=== PATIENT | female | born 1980 | race American Indian/Alaskan Native ===

== ENCOUNTER 2016-09-04 08:04 | Emergency (ER) | payer OTHER ==
--- NOTE | 2016-09-04 09:18 | Emergency Department Report ---
ED Female HPI - General Chief complaint: Urogenital-Female Stated complaint: POSS STD Time Seen by Provider: 09/04/16 09:06 Source: patient Mode of arrival: Ambulatory Limitations: No Limitations - History of Present Illness Initial comments: Patient states she was told by her boyfriend last night that he had penile discharge. At this time she denies any vaginal discharge, painful urination, vaginal bleeding, abdominal pain. She states she would just like to be checked for STD. Patient also noted to have elevated blood pressure 166/106. She states that she was on lisinopril 10 mg but stopped 6 months ago. She just moved from [place] and she does not currently have a primary care physician. Associated Symptoms: denies other symptoms - Related Data Sexually active: Yes Previous Rx's Medication Instructions Recorded Last Taken Type Lisinopril [Zestril TAB] 10 mg PO QDAY #14 tablet 09/04/16 Unknown Rx Allergies Allergy/AdvReac Type Severity Reaction Status Date / Time No Known Allergies Allergy Unverified 09/04/16 08:09 ED Review of Systems ROS: Stated complaint: POSS STD Other details as noted in HPI Constitutional: denies: chills, fever Respiratory: denies: cough, shortness of breath, wheezing Cardiovascular: denies: chest pain, palpitations Gastrointestinal: denies: abdominal pain, nausea, diarrhea Genitourinary: denies: urgency, dysuria, discharge Musculoskeletal: denies: back pain, joint swelling, arthralgia Skin: denies: rash, lesions Neurological: denies: headache, weakness, paresthesias ED Past Medical Hx - Past Medical History Previous Medical History?: Yes Hx Hypertension: Yes (no BP medication x 6 months) - Surgical History Past Surgical History?: Yes Additional Surgical History: bone repair. hand surgery. wrist surgery - Social History Smoking Status: Current Every Day Smoker Substance Use Type: None - Medications Home Medications: Home Medications Medication Instructions Recorded Confirmed Last Taken Type Lisinopril [Zestril TAB] 10 mg PO QDAY #14 tablet 09/04/16 Unknown Rx ED Physical Exam - General Limitations: No Limitations General appearance: alert, in no apparent distress - Head Head exam: Present: atraumatic, normocephalic - Eye Eye exam: Present: normal appearance - Respiratory Respiratory exam: Present: normal lung sounds bilaterally. Absent: respiratory distress - Cardiovascular Cardiovascular Exam: Present: regular rate, normal rhythm. Absent: systolic murmur, diastolic murmur, rubs, gallop - GI/Abdominal GI/Abdominal exam: Present: soft, normal bowel sounds. Absent: tenderness - Extremities Exam Extremities exam: Present: full ROM - Back Exam Back exam: Present: full ROM - Neurological Exam Neurological exam: Present: alert, oriented X3 - Psychiatric Psychiatric exam: Present: normal affect, normal mood - Skin Skin exam: Present: warm, dry, intact, normal color. Absent: rash ED Course Vital Signs 09/04/16 09/04/16 08:09 09:21 Temperature 98.7 F Pulse Rate 94 H Respiratory 18 Rate Blood Pressure 166/106 Blood Pressure 168/98 [Right] O2 Sat by Pulse 100 Oximetry - Reevaluation(s) Reevaluation #1: 09/04/16 09:15 Urinalysis and GC/gonorrhea ordered ED Medical Decision Making - Medical Decision Making Patient presents with possible STD exposure. Her urinalysis is negative. I will not start her on antibiotic at this time. I advised her that we will contact her if her GC is abnormal. I advised her to follow-up with primary care physician to have additional STD testing. I will give her lisinopril 10 mg 2 weeks to give her time to establish PCP care. - Differential Diagnosis std, gonorrhea, chlamydia, hypertension Critical Care Time: No Critical care attestation.: If time is entered above; I have spent that time in minutes in the direct care of this critically ill patient, excluding procedure time. ED Disposition Clinical Impression: Unprotected sexual intercourse, Possible exposure to STD, Hypertension Disposition: DISCHARGED TO HOME OR SELFCARE Is pt being admited?: No Does the pt Need Aspirin: No Condition: Stable Instructions: Sexually Transmitted Diseases (ED), Safe Sex (ED), Hypertension ( ED) Additional Instructions: Follow-up with PCP or outpatient clinic if symptoms began. I advised that she follow up with primary care physician or an outpatient clinic for your blood pressure. Elevated blood pressure for a long period of time can calls organ damage, heart attack, stroke,etc. Prescriptions: Lisinopril [Zestril TAB] 10 mg PO QDAY #14 tablet Referrals: PRIMARY CARE, [Primary Care Provider] - 3-5 Days [facility] [Outside] - 3-5 Days Forms: Work/School Release Form(ED) Time of Disposition: :47
[2016-09-04 09:22] VITALS: BP 168/98
[2016-09-04 09:31] LABS: Bilirubin,Urine NEG (Negative); Blood,Urine NEG (Negative); Ketones,Urine NEG (Negative); Leukocyte Esterase,Urine NEG (Negative); Mucus,Urine FEW /HPF; Nitrite,Urine NEG (Negative); Protein,Urine <15 mg/dL mg/dL (Negative); Urobilinogen,Urine < 2.0 mg/dL (<2.0); WBC,Urine < 1.0 /HPF (0.0-6.0)
== END 2016-09-04 09:53 | disposition home or self-care (01) ==
LOC: ED 08:04
DX: I10 Essential (primary) hypertension (principal); F17.200 Nicotine dependence, unspecified, uncomplicated
CPT/HCPCS: 81001; 99283

== ENCOUNTER 2017-03-24 16:00 | Emergency (ER) | payer OTHER ==
[2017-03-24 17:07] LABS: Bilirubin,Urine NEG (Negative); Blood,Urine LG (Negative); Ketones,Urine NEG (Negative); Leukocyte Esterase,Urine SM (Negative); Mucus,Urine FEW /HPF; Nitrite,Urine NEG (Negative)
[2017-03-24 17:54] VITALS: BP 154/105
[2017-03-24 18:20] LABS: Basophils % (Auto) 0.8 % (0.0-1.8); Eosinophils % (Auto) 0.9 % (0.0-4.3); Hematocrit 41.7 % (30.3-42.9); Hemoglobin 13.3 gm/dl (10.1-14.3); Mean Corpuscular HGB Conc 32 % (30-34); Mean Corpuscular Hemoglobin 26 pg (28-32); Mean Corpuscular Volume 82 fl (79-97); Platelet Count 270 K/mm3 (140-440); Red Blood Count 5.11 M/mm3 (3.65-5.03); Red Cell Distribution Width 14.5 % (13.2-15.2); White Blood Count 7.9 K/mm3 (4.5-11.0)
== END 2017-03-25 02:40 | disposition left against medical advice (07) ==
LOC: ED 16:00
DX: O26.851 Spotting complicating pregnancy, first trimester (principal); O16.1 Unspecified maternal hypertension, first trimester; F17.200 Nicotine dependence, unspecified, uncomplicated; Z3A.01 Less than 8 weeks gestation of pregnancy; Z53.21 Procedure and treatment not carried out due to patient leaving prior to being seen by health care provider
CPT/HCPCS: 36415; 81001; 81025; 84702; 85025; 86850; 86900; 86901

== ENCOUNTER 2017-10-02 08:50 | Emergency (ER) | payer MEDICAID, OTHER ==
[2017-10-02 09:17] VITALS: BP 137/99
[2017-10-02 10:46] LABS: HCG Qualitative,Urine Negative (Negative)
[2017-10-02 10:47] LABS: Bilirubin,Urine NEG (Negative); Blood,Urine NEG (Negative); Color,Urine Yellow (Yellow); Mucus,Urine 3+ /HPF; Protein,Urine <15 mg/dL mg/dL (Negative)
--- NOTE | 2017-10-02 11:07 | Emergency Department Report ---
ED Medical Clearance HPI - General Chief complaint: Medical Clearance Stated complaint: FLU LIKE SYMPTOMS Time Seen by Provider: 10/02/17 10:09 Source: patient Mode of arrival: Ambulatory - History of Present Illness Initial comments: This is a 37-year-old female nontoxic, well nourished in appearance, no acute signs of distress presents to the ED with c/o of for a test. Patient also states has secondary complaint of nasal congestion and nonproductive cough 4 days. Patient denies any fever, chills, abdominal pain, back pain, nausea, vomiting, chest pain shortness of breath. Patient denies any calf pain or calf tenderness. Patient states she had a negative test at home but states she had one day of spotting and has intermittent nausea. Patient stated that she also has bilateral breast tenderness since she is concerned that she is . Patient denies any allergies or significant past medical history. MD Complaint: other ( test) -: days(s) (4) Alledged Intoxication: No Compliant with Home Medications: No Traumatic Symptoms: denies traumatic injury Associated Symptoms: denies: chest pain, shortness of breath, palpitations, diaphoresis, denies other symptoms, confusion, cough, fever/chills, headaches, anorexia, malaise, nausea/vomiting, rash, seizure, syncope, weakness Treatments Prior to Arrival: none Home medications: Previous Rx's Medication Instructions Recorded Last Taken Type Lisinopril [Zestril TAB] 10 mg PO QDAY #14 tablet 09/04/16 Unknown Rx Allergies/Adverse reactions: Allergies Allergy/AdvReac Type Severity Reaction Status Date / Time No Known Allergies Allergy Verified 03/24/17 17:47 ED Review of Systems ROS: Stated complaint: FLU LIKE SYMPTOMS Other details as noted in HPI Constitutional: denies: chills, fever Eyes: denies: eye pain, eye discharge, vision change ENT: denies: ear pain, throat pain Respiratory: denies: cough, shortness of breath, wheezing Cardiovascular: denies: chest pain, palpitations Endocrine: no symptoms reported Gastrointestinal: denies: abdominal pain, nausea, diarrhea Genitourinary: denies: urgency, dysuria, discharge Musculoskeletal: denies: back pain, joint swelling, arthralgia Skin: denies: rash, lesions Neurological: denies: headache, weakness, paresthesias Psychiatric: denies: anxiety, depression Hematological/Lymphatic: denies: easy bleeding, easy bruising ED Past Medical Hx - Past Medical History Hx Hypertension: Yes (no BP medication x 6 months) - Surgical History Additional Surgical History: bone repair. hand surgery. wrist surgery - Social History Smoking Status: Current Every Day Smoker Substance Use Type: None - Medications Home Medications: Home Medications Medication Instructions Recorded Confirmed Last Taken Type Lisinopril [Zestril TAB] 10 mg PO QDAY #14 tablet 09/04/16 Unknown Rx ED Physical Exam - General Limitations: No Limitations General appearance: alert, in no apparent distress - Head Head exam: Present: atraumatic, normocephalic - Eye Eye exam: Present: normal appearance, PERRL, EOMI Pupils: Present: normal accommodation - ENT ENT exam: Present: normal exam, normal orophraynx, mucous membranes moist, TM's normal bilaterally, normal external ear exam - Neck Neck exam: Present: normal inspection, full ROM. Absent: tenderness, meningismus, lymphadenopathy, thyromegaly - Respiratory Respiratory exam: Present: normal lung sounds bilaterally. Absent: respiratory distress, wheezes, rales, rhonchi, stridor, chest wall tenderness, accessory muscle use, decreased breath sounds, prolonged expiratory - Cardiovascular Cardiovascular Exam: Present: regular rate, normal rhythm, normal heart sounds. Absent: bradycardia, tachycardia, irregular rhythm, systolic murmur, diastolic murmur, rubs, gallop - GI/Abdominal GI/Abdominal exam: Present: soft, normal bowel sounds. Absent: distended, tenderness, guarding, rebound, rigid, diminished bowel sounds - Rectal Rectal exam: Present: deferred - Extremities Exam Extremities exam: Present: normal inspection, full ROM, normal capillary refill. Absent: tenderness, pedal edema, joint swelling, calf tenderness - Back Exam Back exam: Present: normal inspection, full ROM. Absent: tenderness, CVA tenderness (R), CVA tenderness (L), muscle spasm, paraspinal tenderness, vertebral tenderness, rash noted - Neurological Exam Neurological exam: Present: alert, oriented X3, CN II-XII intact, normal gait, reflexes normal - Psychiatric Psychiatric exam: Present: normal affect, normal mood - Skin Skin exam: Present: warm, dry, intact, normal color. Absent: rash ED Course Vital Signs 10/02/17 09:12 Temperature 98.1 F Pulse Rate 70 Respiratory 16 Rate Blood Pressure 137/99 O2 Sat by Pulse 99 Oximetry - Reevaluation(s) Reevaluation #1: 10/02/17 11:04 Patient is speaking in full sentences with no signs of distress noted. ED Medical Decision Making - Medical Decision Making this is a 37-year-old female that presents with a test evaluation and flulike symptoms. Patient is stable and was examined by me. Upon examination patient refused a chest x-ray as she stated that she only wants a test. The urine test was negative the patient requested and demanded for a blood test. I explained and educated patient that Urine test is 99.9% accurate and there is no need for a blood test unless there was a positive test at home or amything abnormal. Patient stated she does not want any work up for her cold/flu like symptoms and just wants to be tested for . Patient left before any work up worked. Patient refused to sign AMA form. Patient eloped. At time of eloped, the patient does not seem toxic or ill in appearance. No acute signs of distress noted. ED Disposition Clinical Impression: Flu-like symptoms, test negative Disposition: ELOPED Is pt being admited?: No Does the pt Need Aspirin: No Condition: Stable Referrals: PRIMARY CARE, [Primary Care Provider] - 3-5 Days
== END 2017-10-02 11:09 | disposition left against medical advice (07) ==
LOC: ED 08:50
DX: Z32.02 Encounter for pregnancy test, result negative (principal); J11.1 Influenza due to unidentified influenza virus with other respiratory manifestations
CPT/HCPCS: 81001; 81025

== ENCOUNTER 2018-01-25 22:30 | Emergency (ER) | payer MEDICAID, OTHER ==
[2018-01-26] MEDS ORDERED: XYLOCAINE 1% MPF 5 mL INFILTRATI ONE (05:59)
[2018-01-26] MEDS ORDERED: ZITHROMAX PO ONE (05:59)
[2018-01-26] MEDS ORDERED: ROCEPHIN IM ONE (05:59)
--- NOTE | 2018-01-26 06:03 | Emergency Department Report ---
<WOODY VALENCIA - Last Filed: 01/26/18 06:11> ED Female HPI - General Chief complaint: Urogenital-Female Stated complaint: ABD PAIN Time Seen by Provider: 01/26/18 05:58 Source: patient Mode of arrival: Ambulatory Limitations: No Limitations - History of Present Illness Initial comments: 38-year-old -[place] female comes in reporting that she was so by her partner that he has STD. Patient reports that she has mild vaginal discharge with irritation and pelvic pain. She denies any fever or chills or nausea no vomiting. Sexually active with min unprotected. MD Complaint: vaginal discharge, pelvic pain, possible STD -: days(s) (1) Radiation: suprapubic Severity: mild Severity scale (0 -10): 1 Quality: cramping Consistency: intermittent Improves with: none Are you Now?: No Last Menstrual Period: 12/22/17 EDC: 09/28/18 Associated Symptoms: vaginal discharge - Related Data Sexually active: Yes Previous Rx's Medication Instructions Recorded Last Taken Type Lisinopril [Zestril TAB] 10 mg PO QDAY #14 tablet 09/04/16 Unknown Rx metroNIDAZOLE [Metronidazole] 500 mg PO BID #14 tablet 01/26/18 Unknown Rx Allergies Allergy/AdvReac Type Severity Reaction Status Date / Time No Known Allergies Allergy Verified 03/24/17 17:47 ED Review of Systems ROS: Stated complaint: ABD PAIN Other details as noted in HPI ED Past Medical Hx - Past Medical History Previous Medical History?: Yes Hx Hypertension: Yes (no BP medication x 6 months) - Surgical History Past Surgical History?: Yes Additional Surgical History: bone repair. hand surgery. wrist surgery - Social History Smoking Status: Current Every Day Smoker Substance Use Type: None - Medications Home Medications: Home Medications Medication Instructions Recorded Confirmed Last Taken Type Lisinopril [Zestril TAB] 10 mg PO QDAY #14 tablet 09/04/16 Unknown Rx metroNIDAZOLE [Metronidazole] 500 mg PO BID #14 tablet 01/26/18 Unknown Rx ED Physical Exam - General Limitations: No Limitations General appearance: alert, in no apparent distress - Head Head exam: Present: atraumatic, normocephalic - GI/Abdominal GI/Abdominal exam: Present: soft, normal bowel sounds. Absent: distended, tenderness - Speculum exam: Present: vaginal discharge Bi-manual exam: Present: normal bi-manual exam - Back Exam Back exam: Present: normal inspection - Neurological Exam Neurological exam: Present: alert, oriented X3 - Skin Skin exam: Present: warm, dry, intact, normal color. Absent: rash ED Course Vital Signs 01/25/18 22:37 Temperature 98.7 F Pulse Rate 65 Respiratory 19 Rate Blood Pressure 149/92 O2 Sat by Pulse 99 Oximetry Critical care attestation.: If time is entered above; I have spent that time in minutes in the direct care of this critically ill patient, excluding procedure time. ED Disposition Clinical Impression: STD exposure, Vaginal discharge Disposition: - TO HOME OR SELFCARE Condition: Stable Instructions: Sexually Transmitted Diseases (ED), Bacterial Vaginosis (ED) Prescriptions: metroNIDAZOLE [Metronidazole] 500 mg PO BID #14 tablet Referrals: [facility] [Provider Group] - 3-5 Days [facility] [Provider Group] - 3-5 Days Forms: Work/School Release Form(ED) <JACOB NOBLES - Last Filed: 01/26/18 07:37> ED Medical Decision Making - Medical Decision Making A/P: Vaginal discharge, STD exposure 1-I followed up JAGDISH Valencia's assessment and plan for the patient. I was advised to follow-up what prep result and treat accordingly. Patient has symptoms of vaginal discharge and concern for exposure to STD negative , UA is otherwise unremarkable 2-GC cultures sent, patient treated empirically 3-will also give patient a course of Flagyl based on what prep and symptoms 4- follow-up with [facility] and primary care ED Disposition Is pt being admited?: No Does the pt Need Aspirin: No Time of Disposition: 07:36
[2018-01-26 07:01] LABS: HCG Qualitative,Urine Negative (Negative)
[2018-01-26 07:13] LABS: Bacteria,Urine 1+ /HPF (Negative); Bilirubin,Urine NEG (Negative); Blood,Urine SM (Negative); Color,Urine Yellow (Yellow); Mucus,Urine 3+ /HPF; Protein,Urine <15 mg/dL mg/dL (Negative)
[2018-01-26 08:06] VITALS: BP 147/102
== END 2018-01-26 08:05 | disposition home or self-care (01) ==
LOC: ED 22:30
DX: N89.8 Other specified noninflammatory disorders of vagina (principal); Z20.2 Contact with and (suspected) exposure to infections with a predominantly sexual mode of transmission; I10 Essential (primary) hypertension; F17.200 Nicotine dependence, unspecified, uncomplicated
CPT/HCPCS: 81001; 81025; 87210; 87591; 96372; 99283; J0696